=== PATIENT | female | born 1945 ===

== ENCOUNTER 2023-11-17 14:02 | Outpatient (CLI) | payer MEDICARE, SELFPAY ==
--- NOTE | ~2023-11-17 | XR_ITS ---
EXAMINATION: XR lumbar spine 2-3V DATE: 11/17/2023 14:32 INDICATION: Acute low back and tailbone pain. Fall. TECHNIQUE: 3 views of lumbar spine were obtained. COMPARISON: None. FINDINGS: There is 27 degrees dextroscoliosis of thoracolumbar spine. There is 3 mm retrolisthesis of L2 on L3 and L3 on L4. There is mild anterior wedging of L2 vertebral body, likely chronic. There is severely decreased disc height at L1-L2 and L2-L3 and moderately decreased disc height at L3-L4, L4- L5, and L5-S1. There is multilevel severe facet joint osteoarthritis. IMPRESSION: 1. Severe lumbar spondylosis. 2. Thoracolumbar dextroscoliosis. Reviewed, dictated and finalized at location A.
== END 2023-11-17 14:03 ==
LOC: GOSHIMG 14:10
DX: M43.06 Spondylolysis, lumbar region (principal); M41.85 Other forms of scoliosis, thoracolumbar region
CPT/HCPCS: 72100